=== PATIENT | male | born 1980 ===

== ENCOUNTER 2018-01-12 10:27 | Emergency (ER) | payer OTHER ==
[~2018-01-12] VITALS: Ht 160 cm; Wt 69.9 kg
== END 2018-01-12 12:18 | disposition home or self-care (01) ==
LOC: ER 10:27
DX: S90.31XA Contusion of right foot, initial encounter (principal); W22.8XXA Striking against or struck by other objects, initial encounter; Y93.89 Activity, other specified; Y92.69 Other specified industrial and construction area as the place of occurrence of the external cause; Y99.8 Other external cause status

== ENCOUNTER 2018-02-11 14:32 | Emergency (ER) | payer OTHER ==
[~2018-02-11] VITALS: Ht 160 cm; Wt 69.9 kg
== END 2018-02-11 17:30 | disposition home or self-care (01) ==
LOC: ER 14:32
DX: S81.832A Puncture wound without foreign body, left lower leg, initial encounter (principal); W45.8XXA Other foreign body or object entering through skin, initial encounter; Y93.89 Activity, other specified; Y92.89 Other specified places as the place of occurrence of the external cause; Y99.8 Other external cause status

== ENCOUNTER 2020-04-28 10:46 | Outpatient (CLI) | payer OTHER | END 2020-04-28 10:58 | disposition home or self-care (01) | LOC: TOM 10:46 | PROVIDERS: ATTEND General Practice | DX: R10.84 Generalized abdominal pain (principal); R07.89 Other chest pain; Z13.89 Encounter for screening for other disorder; Z13.220 Encounter for screening for lipoid disorders; Z11.3 Encounter for screening for infections with a predominantly sexual mode of transmission; Z13.1 Encounter for screening for diabetes mellitus ==

== ENCOUNTER → 2021-06-29 | Outpatient (CLI) | payer OTHER | END | disposition home or self-care (01) | LOC: RAD 11:35 | PROVIDERS: ATTEND General Practice | DX: M79.674 Pain in right toe(s) (principal); Z13.89 Encounter for screening for other disorder; Z13.220 Encounter for screening for lipoid disorders; Z11.3 Encounter for screening for infections with a predominantly sexual mode of transmission; R60.0 Localized edema ==

== ENCOUNTER 2025-05-06 10:35 | Outpatient (CLI) | payer OTHER | END 2025-05-06 10:44 | disposition home or self-care (01) | LOC: MRI 10:35 | DX: Z71.9 Counseling, unspecified (principal); R07.9 Chest pain, unspecified; Q61.00 Congenital renal cyst, unspecified; Z20.822 Contact with and (suspected) exposure to COVID-19; M79.674 Pain in right toe(s); E78.2 Mixed hyperlipidemia; Z00.00 Encounter for general adult medical examination without abnormal findings; K40.20 Bilateral inguinal hernia, without obstruction or gangrene, not specified as recurrent; A56.8 Sexually transmitted chlamydial infection of other sites; R60.0 Localized edema; Z11.3 Encounter for screening for infections with a predominantly sexual mode of transmission; Z13.1 Encounter for screening for diabetes mellitus; Z11.52 Encounter for screening for COVID-19; N20.0 Calculus of kidney; R71.8 Other abnormality of red blood cells; M25.521 Pain in right elbow; N22 Calculus of urinary tract in diseases classified elsewhere; R10.10 Upper abdominal pain, unspecified; Z13.89 Encounter for screening for other disorder; R10.9 Unspecified abdominal pain; Z13.9 Encounter for screening, unspecified; K59.00 Constipation, unspecified; Z03.818 Encounter for observation for suspected exposure to other biological agents ruled out; R51.9 Headache, unspecified; E78.1 Pure hyperglyceridemia; R21 Rash and other nonspecific skin eruption; R00.2 Palpitations; E78.5 Hyperlipidemia, unspecified; Z12.11 Encounter for screening for malignant neoplasm of colon; L50.0 Allergic urticaria; Z13.220 Encounter for screening for lipoid disorders; R01.1 Cardiac murmur, unspecified; D46.4 Refractory anemia, unspecified; Z76.0 Encounter for issue of repeat prescription; S06.0X1A Concussion with loss of consciousness of 30 minutes or less, initial encounter; T79.8XXA Other early complications of trauma, initial encounter; V21.5 Motorcycle passenger injured in collision with pedal cycle in traffic accident; X58.XXXA Exposure to other specified factors, initial encounter; Y93.9 Activity, unspecified; Y92.9 Unspecified place or not applicable; Y99.9 Unspecified external cause status ==